=== PATIENT | male | born 1990 | race Caucasian/White ===

== ENCOUNTER 2018-03-02 11:13 | Emergency (ER) | payer OTHER, MEDICAID ==
--- NOTE | 2018-03-02 11:15 | ER Report ---
History and Physical Time Seen By MD: 11:15 HPI/ROS CHIEF COMPLAINT: Constipation HISTORY OF PRESENT ILLNESS: Patient is a 27-year-old male with an electrical disability here with complaints of constipation times one week. Patient reportedly had received his daily Colace, glycerin suppositories, enemas, laxatives without passage of bowel movement. Patient does have a long-standing history of constipation however his home medications usually take care of the issue. Patient is unable to verbalize complaints at this time however he does seem uncomfortable on palpation of the abdomen. Denies nondistended and there is no rebound or guarding at time of initial evaluation. Patient is afebrile, hemodynamically stable. Patient is tolerating oral intake. REVIEW OF SYSTEMS: Unable to obtain due to patient's mental status Allergies: Coded Allergies: No Known Drug Allergies (Unverified , 03/02/18) Constitutional Vital Sign - Last 24 Hours 03/02/18 11:21 Pulse 90 Resp 20 B/P (MAP) 112/86 Pulse Ox 97 O2 Delivery Room Air Physical Exam General Appearance: The patient is alert, has no immediate need for airway protection and no signs of toxicity. No acute distress Eyes: Pupils equal and round no pallor or injection. ENT, Mouth: Mucous membranes are moist. Respiratory: There are no retractions, lungs are clear to auscultation. Cardiovascular: Regular rate and rhythm. Gastrointestinal: Abdomen is soft and diffusely tender without rebound or guarding, bowel sounds normal. Neurological: Moving all extremities spontaneously Skin: Warm and dry, no rashes. Musculoskeletal: Neck is supple non tender. DIFFERENTIAL DIAGNOSIS: After history and physical exam differential diagnosis was considered for abdominal pain including but not limited to appendicitis, cholecystitis, gastritis and urinary tract infection. Constipation Medical Decision Making EKG/Imaging Imaging KUB SINGLE VIEW ABDOMEN INDICATION: Constipation. COMPARISON: None. FINDINGS: At least moderate stool seen throughout colon. Bowel gas pattern is nonobstructed and nondilated. Abdominal soft tissues are grossly normal without suspicious lucencies or abnormal calcifications. Lung bases are clear. No acute bony abnormality. IMPRESSION: At least moderate stool seen throughout colon. No obstruction. ED Course/Re-evaluation ED Course Patient is a 27-year-old male here with complaints of constipation. Last bowel movement was reportedly one week prior to arrival. Patient is tolerating oral intake. Patient does have a long-standing history of constipation. Patient has been given daily Colace, a laxative pill, enemas and glycerin suppositories without relief. Patient was given mag citrate. Patient had a bowel movement while in the emergency department. X-ray was consistent with moderate stool burden. I advised the patient's mother to give the patient MiraLAX for the next several days and to have the patient drink plenty of water. Patient was stable at time of discharge. Decision to Disposition Date: Mar 02, 2018 Decision to Disposition Time: 12:47 Depart Departure Latest Vital Signs Vital Signs Date Time Temp Pulse Resp B/P (MAP) Pulse Ox O2 Delivery O2 Flow Rate FiO2 03/02/18 11:21 90 20 112/86 97 Room Air Impression: Primary Impression: Constipation Condition: Improved Disposition: HOME OR SELF-CARE Patient Instructions: Constipation (ED) Additional Instructions: Please drink plenty of water. You may consider taking MiraLAX for the next several days until stool burden is relieved. Please return promptly if you develop abdominal pain, nausea, vomiting, oral intolerance of food, fevers or chills. BRISA CAT DO Mar 02, 2018 11:15
--- NOTE | 2018-03-02 12:24 | RADIOLOGY IMAGING REPORT ---
FACILITY: [facility] [place] PATIENT NAME: Deng Santos : 1990 MR: [id number] V: [id number] EXAM DATE: ORDERING PHYSICIAN: BRISA CAT TECHNOLOGIST: Location: [facility] Patient: Deng Santos : 1990 Visit/Account:[id number] Date of Sevice: 03/02/2018 KUB SINGLE VIEW ABDOMEN INDICATION: Constipation. COMPARISON: None. FINDINGS: At least moderate stool seen throughout colon. Bowel gas pattern is nonobstructed and non dilated. Abdominal soft tissues are grossly normal without suspicious lucencies or abnormal calcifica tions. Lung bases are clear. No acute bony abnormality. IMPRESSION: At least moderate stool seen throughout colon. No obstruction. Report Dictated By: Reyes Hargrove at 03/02/2018 12:14 PM Report E-Signed By: Reyes Hargrove at 03/02/2018 12:15 PM WSN:[id number]
[2018-03-02] MEDS ORDERED: MAGNESIUM CITRATE 300 ML BTL PO ONE (12:30)
[2018-03-02 12:57] VITALS: BP 115/78
== END 2018-03-02 13:10 | disposition home or self-care (01) ==
LOC: ER 11:52
DX: K59.00 Constipation, unspecified (principal)
CPT/HCPCS: 74018; 99283